=== PATIENT | female | born 1990 | race Caucasian/White ===

== ENCOUNTER → 2017-11-18 | Outpatient (CLI) | payer BC ==
[~2017-11-18] MED LIST: ATIVAN1 MG PO; CIPROFLOXACIN500 M1 PO; FOLIC ACID1 MG PO; IBUPROFEN 600600 M1 PO; KEFLEX500 MG PO; PHENERGAN 25 MG25 M1 PO; PRENATAL; TOPAMAX50 MG PO; TRINATE TABLET1 TAB PO; ZOFRAN4 MG PO
== END ==
LOC: ULTRA 14:51
DX: S59.902A Unspecified injury of left elbow, initial encounter (principal); X58.XXXA Exposure to other specified factors, initial encounter; Y93.89 Activity, other specified; Y92.89 Other specified places as the place of occurrence of the external cause; Y99.8 Other external cause status